=== PATIENT | male | born 1990 | race Caucasian/White ===

== ENCOUNTER 2021-05-26 18:07 | Emergency (ER) | payer OTHER ==
[~2021-05-26] VITALS: Ht 177.8 cm; Wt 82.0 kg
[2021-05-26] MEDS ORDERED: MORPHINE 4 MG/ML 1ML VIAL/SYRINGE (J2270) IV PRN (18:20)
[2021-05-26] MEDS ORDERED: NS 1,000 ML IV ONE (18:20)
[2021-05-26] MEDS ORDERED: ISOVUE-370 76% 100ML VIAL As Ordered ONE (18:29)
[2021-05-26 18:51] LABS: BASO % 0.2 % (0.0-1.0); EOS # 0.1 10^3/uL (0.0-0.5); EOS % 1.3 % (0.0-3.0); HEMATOCRIT 47.3 % (42.0-52.0); HEMOGLOBIN 16.2 g/dl (13.5-17.5); LYMPH # 2.5 10^3/uL (1.5-5.0); LYMPH % 41.5 % (24.0-44.0); MEAN CORPUSCULAR HEMOGLOBIN 29.7 pg (27.0-33.0); MEAN CORPUSCULAR HGB CONC 34.2 g/dl (32.0-36.5); MEAN CORPUSCULAR VOLUME 86.6 fl (80.0-96.0); MONO # 0.6 10^3/uL (0.0-0.8); MONO % 9.1 % (2.0-8.0); NEUTROPHILS # 2.9 10^3/uL (1.5-8.5); NEUTROPHILS % 47.6 % (36.0-66.0); PLATELET COUNT, AUTOMATED 245 10^3/uL (150-450); RED BLOOD COUNT 5.46 10^6/uL (4.30-6.10); WHITE BLOOD COUNT 6.1 10^3/uL (4.0-10.0)
[2021-05-26 19:06] LABS: ALBUMIN 4.2 GM/DL (3.2-5.2); ALT/SGPT 45 U/L (12-78); AMYLASE 81 U/L (25-115); BILIRUBIN,DIRECT 0.1 MG/DL (0.0-0.2); BILIRUBIN,TOTAL 0.4 MG/DL (0.2-1.0); CK-MB VALUE MASS < 1.0 NG/ML (<3.6); CPK CREATINE PHOSPHOKINASE 100 U/L (39-308); ETHYL ALCOHOL (ETHANOL) < 0.003 % (0.000-0.010); LIPASE 219 U/L (73-393); TOTAL PROTEIN 7.5 GM/DL (6.4-8.2); TROPONIN I < 0.02 NG/ML (< 0.10)
[2021-05-26 19:14] LABS: INR 1.13; PROTHROMBIN TIME 14.9 SECONDS (12.7-14.5)
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
[2021-05-26] MEDS ORDERED: BACITRACIN OINTMENT 30GM TUBE TOP STA (19:57)
[2021-05-26] MEDS ORDERED: HYDR-3713 PO (20:13)
[2021-05-26] MEDS ORDERED: NORCO 5/325MG TABLET (BULK FOR ED) PO ONE (20:15)
[2021-05-26 20:45] VITALS: BP 143/89
--- NOTE | 2021-05-27 06:54 | ECGEPIP ---
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
== END 2021-05-26 21:34 | disposition home or self-care (01) ==
LOC: EDBD 18:07 → M ED 18:07
DX: S20.20XA Contusion of thorax, unspecified, initial encounter (principal); T14.8XXA Other injury of unspecified body region, initial encounter; V28.4XXA Motorcycle driver injured in noncollision transport accident in traffic accident, initial encounter; Y92.9 Unspecified place or not applicable; Y93.9 Activity, unspecified; Y99.9 Unspecified external cause status
CPT/HCPCS: 71045; 71260; 74177; 80047; 80076; 82077; 82150; 82550; 82553; 83605; 83690; 84484; 85025; 85610; 85730; 86850; 86900; 86901; 93005; 93041; 94760; 96361; 96374; 99285; J2270; Q9967

== ENCOUNTER 2023-02-01 17:42 | Emergency (ER) | payer OTHER ==
[~2023-02-01] VITALS: Ht 177.8 cm; Wt 85.9 kg
[~2023-02-01 17:42] MED LIST: HYDR-3713 PO
[2023-02-01 19:01] LABS: BASO % 0.7 % (0.0-1.0); EOS # 0.2 10^3/uL (0.0-0.5); EOS % 3.9 % (0.0-3.0); HEMATOCRIT 49.6 % (42.0-52.0); HEMOGLOBIN 16.5 g/dl (13.5-17.5); LYMPH # 1.5 10^3/uL (1.5-5.0); LYMPH % 33.4 % (24.0-44.0); MEAN CORPUSCULAR HEMOGLOBIN 29.5 pg (27.0-33.0); MEAN CORPUSCULAR HGB CONC 33.3 g/dl (32.0-36.5); MEAN CORPUSCULAR VOLUME 88.6 fl (80.0-96.0); MONO # 0.6 10^3/uL (0.0-0.8); MONO % 12.4 % (2.0-8.0); NEUTROPHILS # 2.3 10^3/uL (1.5-8.5); NEUTROPHILS % 49.2 % (36.0-66.0); PLATELET COUNT, AUTOMATED 269 10^3/uL (150-450); WHITE BLOOD COUNT 4.6 10^3/uL (4.0-10.0)
[2023-02-01] MEDS ORDERED: ASPIRIN 81MG CHEW TABLET PO ONE (19:10)
[2023-02-01 19:20] LABS: BLOOD UREA NITROGEN 16 MG/DL (9-23); CALCIUM LEVEL 9.7 MG/DL (8.5-10.1); CARBON DIOXIDE LEVEL 30 MMOL/L (20-31); CHLORIDE LEVEL 105 MMOL/L (98-107); CK-MB VALUE MASS < 1.0 NG/ML (<3.6); GLOMERULAR FILTRATION RATE > 60.0 (>60); GLUCOSE, FASTING 90 MG/DL (60-100); POTASSIUM SERUM 4.5 MMOL/L (3.5-5.1); SODIUM LEVEL 140 MMOL/L (136-145)
[2023-02-01 19:22] LABS: CPK CREATINE PHOSPHOKINASE 92 U/L (46-171); MB/CK RELATIVE INDEX 1.08 (< OR =4)
[2023-02-01] MEDS ORDERED: ISOVUE-370 76% 100ML VIAL As Ordered ONE (19:39)
[2023-02-01 20:28] LABS: CK-MB VALUE MASS < 1.0 NG/ML (<3.6)
[2023-02-01 20:32] LABS: CPK CREATINE PHOSPHOKINASE 85 U/L (46-171); MB/CK RELATIVE INDEX 1.17 (< OR =4)
[2023-02-01 21:45] VITALS: BP 149/81
== END 2023-02-01 22:06 | disposition home or self-care (01) ==
LOC: M ED 17:42
DX: R07.9 Chest pain, unspecified (principal); I25.2 Old myocardial infarction; Z87.891 Personal history of nicotine dependence
CPT/HCPCS: 36415; 71045; 71275; 80048; 82550; 82553; 84484; 85025; 93005; 93041; 94760; 99285; Q9967